=== PATIENT | female | born 1950 | race Caucasian/White ===

== ENCOUNTER 2017-12-12 07:27 | Day surgery (SDC) | payer MEDICARE, OTHER ==
[2017-12-12] MEDS ORDERED: LACTATED RINGERS 1,000 ML IV ONE ×2 (07:50→09:51)
[2017-12-12 07:57] LABS: BASOPHILS # (AUTO) 0.1 10^3/uL (0.0-0.1); BASOPHILS % (AUTO) 1.3 %; EOSINOPHILS # (AUTO) 0.3 10^3/uL (0.0-0.7); EOSINOPHILS % (AUTO) 6.4 %; LYMPHOCYTES # (AUTO) 1.4 10^3/uL (1.5-3.5); LYMPHOCYTES % (AUTO) 32.6 %; MEAN CORPUSCULAR HEMOGLOBIN 30.6 pg (27.0-31.0); MEAN CORPUSCULAR HGB CONC 32.9 g/dL (32.0-36.0); MEAN CORPUSCULAR VOLUME 92.9 fL (81.0-99.0); MEAN PLATELET VOLUME 9.8 fL (7.9-10.8); MONOCYTES # (AUTO) 0.5 10^3/uL (0.0-1.0); MONOCYTES % (AUTO) 11.1 %; NEUTROPHILS # (AUTO) 2.1 10^3/uL (1.5-6.6); NEUTROPHILS % (AUTO) 48.6 %; PLT - PLATELET COUNT 207 10^3/uL (130-450); RED BLOOD COUNT 4.92 10^6/uL (4.20-5.40); RED CELL DISTRIBUTION WIDTH 13.8 % (12.0-15.0); WHITE BLOOD COUNT 4.4 x10^3/uL (4.8-10.8)
[2017-12-12 08:23] LABS: ALBUMIN 3.8 g/dL (3.2-5.5); ALBUMIN/GLOBULIN RATIO 1.5 (1.0-2.2); BILIRUBIN,TOTAL 0.8 mg/dL (0.2-1.0); CALCIUM 8.9 mg/dL (8.5-10.3); CREATININE 0.9 mg/dL (0.4-1.0); TOTAL PROTEIN 6.4 g/dL (6.7-8.2)
[2017-12-12] MEDS ORDERED: fentaNYL 100 MCG/2 ML VIAL IVP ONE (09:10)
[2017-12-12] MEDS ORDERED: MIDAZOLAM 2 MG/2 ML VIAL IVP ONE (09:10)
[2017-12-12 10:54] VITALS: BP 98/64
== END 2017-12-12 07:28 | disposition home or self-care (01) ==
LOC: SDS 07:27
PROVIDERS: ATTEND Internal Medicine Gastroenterology
PROC: 0DBP8ZX Excision of Rectum, Via Natural or Artificial Opening Endoscopic, Diagnostic (ICD-10-PCS; principal; 2017-12-12 08:30)
DX: R10.32 Left lower quadrant pain (principal); R10.31 Right lower quadrant pain; K57.30 Diverticulosis of large intestine without perforation or abscess without bleeding; K62.1 Rectal polyp; I10 Essential (primary) hypertension
CPT/HCPCS: 45380; 80053; 83690; 85025; J7120; 88305

== ENCOUNTER 2018-06-19 08:22 | Outpatient (CLI) | payer MEDICARE, OTHER | END 2018-06-19 08:23 | disposition home or self-care (01) | LOC: DI 08:22 | PROVIDERS: ATTEND Physician Assistant Medical | DX: Z12.31 Encounter for screening mammogram for malignant neoplasm of breast (principal) | CPT/HCPCS: 77063; 77067 ==

== ENCOUNTER 2018-06-19 08:24 | Outpatient (CLI) | payer MEDICARE, OTHER ==
--- NOTE | 2018-06-20 08:42 | DEXA Report ---
Reason: POSTMENOPAUSAL STATUS Procedure Date: 06/19/2018 Accession Number: [id number] / [id number] Procedure: DEX - Dexa Spine and/or Hip CPT Code: FULL RESULT: EXAM: Dexa Spine and/or Hip DATE: 06/19/2018 9:24 AM CLINICAL HISTORY: POSTMENOPAUSAL STATUS TECHNIQUE: Dual energy x-ray absorptiometry (DXA) was performed on a [employer] System. Regions measured are the AP Spine, femoral neck, and if needed forearm. COMPARISON: None. In accordance with the International Society for Clinical Densitometry (ISCD) guidelines, data from previous exams may be reanalyzed using current recommendations and techniques. This is done to allow a more accurate basis for comparison with the current study. FINDINGS: The data for the lumbar spine is as follows: BMD (g/cm/cm) T-SCORE Z-SCORE REGION L1 0.994 -1.1 0.5 L2 1.019 -1.5 0.1 L3 1.284 0.7 2.3 L4 1.276 0.6 2.2 TOTAL 1.161 -0.2 1.4 NOTE: All evaluable vertebrae are used for classification The data for the hip is as follows: BMD (g/cm/cm) T-SCORE Z-SCORE REGION Neck 0.867 -1.2 0.3 TOTAL 0.834 -1.4 -0.1 NOTE: The femoral neck or total proximal femur, whichever is lowest, is used for classification. IMPRESSION: THE WHO CLASSIFICATION BASED ON THE INTERNATIONAL REFERENCE STANDARD IS OSTEOPENIA. THE FRACTURE RISK IS INCREASED. RECOMMENDATION: Patients with diagnosis of osteoporosis or osteopenia should have regular bone mineral density assessment. For those eligible for Medicare, routine testing is allowed once every 2 years. Testing frequency can be increased for patients who have rapidly progressing disease or for those who are receiving medical therapy to restore bone mass. COMMENT: World Health Organization (WHO) definitions for osteoporosis and osteopenia: NORMAL BMD: T-score at -1.0 or higher, fracture risk is low OSTEOPENIA BMD: T-score between -1.0 and -2.5, fracture risk is increased. OSTEOPOROSIS BMD: T-score at -2.5 or lower, fracture risk is high. National Osteoporosis Foundation recommends: 1. Obtain adequate dietary calcium (at least 1200 mg per day) and vitamin D (400-800 international units per day). 2. Participate, as appropriate, in regular weightbearing and muscle-strengthening exercise. 3. Avoid tobacco use and reduce alcohol and caffeine intake. 4. For more detailed information see the website at www.NOF.org.
== END 2018-06-19 08:25 | disposition home or self-care (01) ==
LOC: DI 08:24
PROVIDERS: ATTEND Physician Assistant Medical
DX: M85.89 Other specified disorders of bone density and structure, multiple sites (principal); Z78.0 Asymptomatic menopausal state
CPT/HCPCS: 77080

== ENCOUNTER 2018-12-23 09:16 | Outpatient (CLI) | payer MEDICARE, OTHER ==
[2018-12-23 18:09] LABS: BASOPHILS % (AUTO) 0.6 %; EOSINOPHILS # (AUTO) 0.3 10^3/uL (0.0-0.7); EOSINOPHILS % (AUTO) 5.3 %; HGB - HEMOGLOBIN 14.4 g/dL (12.0-16.0); LYMPHOCYTES # (AUTO) 1.6 10^3/uL (1.5-3.5); LYMPHOCYTES % (AUTO) 30.9 %; MEAN CORPUSCULAR HEMOGLOBIN 29.7 pg (27.0-31.0); MEAN CORPUSCULAR HGB CONC 31.4 g/dL (32.0-36.0); MEAN CORPUSCULAR VOLUME 94.6 fL (81.0-99.0); MEAN PLATELET VOLUME 11.5 fL (7.9-10.8); MONOCYTES # (AUTO) 0.5 10^3/uL (0.0-1.0); MONOCYTES % (AUTO) 9.5 %; NEUTROPHILS # (AUTO) 2.8 10^3/uL (1.5-6.6); NEUTROPHILS % (AUTO) 53.5 %; PLT - PLATELET COUNT 249 10^3/uL (130-450); RED BLOOD COUNT 4.85 10^6/uL (4.20-5.40); RED CELL DISTRIBUTION WIDTH 13.9 % (12.0-15.0); WHITE BLOOD COUNT 5.3 x10^3/uL (4.8-10.8)
[2018-12-23 18:17] LABS: ALBUMIN/GLOBULIN RATIO 1.6 (1.0-2.2); BILIRUBIN,TOTAL 0.6 mg/dL (0.2-1.0); CALCIUM 9.3 mg/dL (8.5-10.3); CREATININE 0.6 mg/dL (0.4-1.0); TOTAL PROTEIN 6.5 g/dL (6.7-8.2)
== END 2018-12-23 09:17 | disposition home or self-care (01) ==
LOC: LAB.F 09:16
PROVIDERS: ATTEND Physician Assistant Medical
DX: I10 Essential (primary) hypertension (principal); E03.9 Hypothyroidism, unspecified
CPT/HCPCS: 36415; 80053; 84443; 85025

== ENCOUNTER 2019-06-11 09:09 | Outpatient (CLI) | payer MEDICARE, OTHER ==
[2019-06-11 18:17] LABS: THYROID STIMULATING HORMONE 2.15 uIU/mL (0.34-5.60)
[2019-06-11 18:19] LABS: FREE T4 (FREE THYROXINE) 0.76 ng/dL (0.58-1.64)
[2019-06-11 18:47] LABS: HB2 TOTAL 15.2 g/dL; HEMOGLOBIN A1C 0.6 g/dL; HEMOGLOBIN A1C % 5.8 % (4.6-6.2)
[2019-06-12 05:46] LABS: ESTRADIOL 50 pg/mL
== END 2019-06-11 09:10 | disposition home or self-care (01) ==
LOC: LAB.S 09:09
PROVIDERS: ATTEND Physician Assistant Medical
DX: M85.80 Other specified disorders of bone density and structure, unspecified site (principal); Z79.890 Hormone replacement therapy; R73.01 Impaired fasting glucose; E03.9 Hypothyroidism, unspecified
CPT/HCPCS: 36415; 82306; 82670; 83036; 84439; 84443; 84481; 86376; 86800

== ENCOUNTER 2020-08-03 08:56 | Outpatient (CLI) | payer MEDICARE, OTHER ==
[2020-08-03 14:56] LABS: BASOPHILS % (AUTO) 0.6 %; EOSINOPHILS # (AUTO) 0.3 10^3/uL (0.0-0.7); EOSINOPHILS % (AUTO) 4.4 %; HGB - HEMOGLOBIN 14.9 g/dL (12.0-16.0); LYMPHOCYTES # (AUTO) 1.5 10^3/uL (1.5-3.5); LYMPHOCYTES % (AUTO) 23.3 %; MEAN CORPUSCULAR HEMOGLOBIN 30.1 pg (27.0-31.0); MEAN CORPUSCULAR HGB CONC 32.6 g/dL (32.0-36.0); MEAN CORPUSCULAR VOLUME 92.3 fL (81.0-99.0); MEAN PLATELET VOLUME 11.5 fL (7.9-10.8); MONOCYTES # (AUTO) 0.7 10^3/uL (0.0-1.0); MONOCYTES % (AUTO) 10.4 %; NEUTROPHILS # (AUTO) 3.9 10^3/uL (1.5-6.6); NEUTROPHILS % (AUTO) 61.1 %; PLT - PLATELET COUNT 252 10^3/uL (130-450); RED BLOOD COUNT 4.95 10^6/uL (4.20-5.40); RED CELL DISTRIBUTION WIDTH 14.1 % (12.0-15.0); WHITE BLOOD COUNT 6.3 x10^3/uL (4.8-10.8)
[2020-08-03 15:09] LABS: HEMOGLOBIN A1c% 5.7 % (4.27-6.07)
[2020-08-03 15:12] LABS: ALBUMIN 4.1 g/dL (3.2-5.5); ALBUMIN/GLOBULIN RATIO 1.6 (1.0-2.2); ALKALINE PHOSPHATASE 48 IU/L (42-121); ALT ALANINE AMINOTRANSFERASE 28 IU/L (10-60); AST ASPARTATE AMINOTRANSFERASE 24 IU/L (10-42); BILIRUBIN,TOTAL 0.7 mg/dL (0.2-1.0); BUN - BLOOD UREA NITROGEN 17 mg/dL (6-20); CALCIUM 9.3 mg/dL (8.5-10.3); CARBON DIOXIDE - CO2 27 mmol/L (21-32); CHLORIDE 101 mmol/L (101-111); CHOL/HDL RATIO 3.3 (<4.4); CHOLESTEROL 187 mg/dL; CREATININE 0.5 mg/dL (0.4-1.0); GLUCOSE 97 mg/dL (70-100); HDL CHOLESTEROL 57 mg/dL; LDL CHOLESTEROL,CALCULATED 116 mg/dL; TOTAL PROTEIN 6.7 g/dL (6.7-8.2); VLDL CHOLESTEROL 14 mg/dL
[2020-08-03 16:33] LABS: FREE T4 (FREE THYROXINE) 0.68 ng/dL (0.58-1.64)
[2020-08-04 06:02] LABS: PROGESTERONE 4.9 ng/mL
== END 2020-08-03 08:57 | disposition home or self-care (01) ==
LOC: LAB.S 08:56
PROVIDERS: ATTEND Registered Nurse
DX: I10 Essential (primary) hypertension (principal); E03.9 Hypothyroidism, unspecified; K58.9 Irritable bowel syndrome, unspecified; R73.01 Impaired fasting glucose; Z78.0 Asymptomatic menopausal state
CPT/HCPCS: 36415; 80053; 80061; 82607; 82627; 82670; 82672; 83036; 83721; 84144; 84403; 84439; 84443; 85025

== ENCOUNTER 2021-02-03 15:28 | Outpatient (CLI) | payer MEDICARE, OTHER ==
[2021-02-03 16:09] VITALS: BP 127/81
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
== END 2021-02-03 15:29 | disposition home or self-care (01) ==
LOC: SC 15:28
PROVIDERS: ATTEND Nurse Practitioner Family
DX: R41.89 Other symptoms and signs involving cognitive functions and awareness (principal); G47.8 Other sleep disorders; R51.9 Headache, unspecified; R06.83 Snoring
CPT/HCPCS: 99203; G0463; 99212

== ENCOUNTER 2021-03-03 19:40 | Outpatient (CLI) | payer MEDICARE, OTHER | END 2021-03-03 19:41 | disposition home or self-care (01) | LOC: SC 19:40 | PROVIDERS: ATTEND Nurse Practitioner Family | DX: G47.33 Obstructive sleep apnea (adult) (pediatric) (principal); G47.61 Periodic limb movement disorder | CPT/HCPCS: 95810 ==

== ENCOUNTER 2021-03-17 15:24 | Outpatient (CLI) | payer MEDICARE, OTHER ==
--- NOTE | 2021-03-17 15:57 | SLEEP CARE CONSULTATION ---
Information from patient questionnaire entered by Nikki Spangler. I have reviewed and concur with the information entered by Nikki Spangler. This document represents the service I personally performed and the decisions made by , Patty Hansen ARNP. History of Present Illness Service Date and Time: 03/17/2021 1524 Initial [place] Sleepiness Scale score: 6 (in 2020) Current [place] Sleepiness Scale score: 9 Additional HPI information: KAYLEIGH SCHAEFER returns for follow up and results of the recently performed polysomnography. I explained the pathophysiology behind obstructive sleep apnea. We then spent quite a bit of time discussing different treatment options. For mild obstructive sleep apnea, surgery and oral appliance are alternatives to nasal CPAP therapy but in moderate or severe cases, nasal CPAP is the most effective and reliable treatment. Because apnea is primarily in supine position, then positional management therapy could be effective. Methods discussed such as positioning with pillows, using a T-shirt with tennis balls in the back, and shown commercial products that have a pillow format on back to prevent supine sleep. I reviewed the impact of weight changes on sleep apnea. Patient was cautioned about risks of drowsy driving until sleepiness symptoms resolve. Sleep Study - Results Type of Sleep Study: Polysomnography Prior sleep studies: No Polysomnography/Home Sleep Study results: IMPRESSION: The quality of the study is good. The patient had slightly reduced sleep efficiency due to a prolonged awakening in the middle of the night. The sleep architecture was abnormal for sleep fragmentation. The sleep stage distribution was relatively normal. Respiratory monitoring showed mild obstructive sleep apneahypopnea (AHI = 5.6) associated with frequent arousals, oxyhemoglobin desaturation and mild hypoxia (mehrdad oxygen saturation of 82%). The respiratory events occurred almost exclusively during supine sleep (supine AHI = 6.8; non-supine = 0.85). Snore was light to moderate in intensity. There was severe periodic leg movement of sleep contributing to the sleep fragmentation.. Cardiac rhythm was normal sinus rhythm without significant arrhythmia. No abnormal behavior (parasomnia) observed during the night. Allergies and Home Medications Home medication list reviewed: Yes (no changes) Review of Systems Review of systems same as previous: Yes (no changes) Physical Exam Heart Rate: 68 O2 Saturation: 98 Height: 5 ft 4 in Weight: 145 lb Body Mass Index: 24.9 BMI Classification: Healthy weight Impression and Plan 1. Obstructive Sleep Apnea-Hypopnea Syndrome, mild, with lowest oxygen satur ation of 82%. Obviously this is the cause of the patients symptoms of unrefreshed sleep, and excessive daytime sleepiness. Positive pressure therapy could benefit hypertension and prediabetes. Patient would like to take some time and think about her options. She will call with her decision. Since patients apnea is primarily in supine position, patient advised to try positional therapy and agreed with plan. He is also advised to lose weight as this will reduce snoring and apnea. An oral appliance can also be used for snoring but often is not covered by insurance. Follow up is scheduled for one month to check effectiveness and if further evaluation indicated such a repeat study in supine position only to see if additional treatment indicated. 2. Periodic limb movement, severe, that did fragment patients sleep. Periodic limb movement of sleep (PLMS) is characterized by episodes of repetitive limb movements that occur during sleep and usually involve the lower limbs. The etiology is unknown but can be associated with restless leg syndrome (RLS), neuropathy, spinal cord diseases, kidney disease, rheumatological disorders, narcolepsy, obstructive sleep apnea, and REM sleep behavior disorder. Other factors that can increase PLMS and/or RLS are heredity and iron deficiency as reflected by a low serum ferritin level below 50 to 75mcg / L. Several medications can precipitate or aggravate PLMS such as selective serotonin re- uptake inhibitor antidepressants, tricyclic antidepressants, lithium, and dopamine receptor antagonists with the exception of bupropion. Caffeine can also aggravate PLMS and should be avoided. Sleep hygiene methods can also improve sleep as well as lifestyle changes such as regular exercise. Patient was advised that no treatment is needed at this time. If symptoms increase, then further evaluation is indicated. * Positional therapy. * Follow up with PCP for severe PLMs * Attempt to lose weight. * Avoid alcohol consumption near bedtime. * Avoid supine sleep until using CPAP. * The patient is again cautioned about driving until sleepiness completely resolves. * Return one month after CPAP obtained. I will assess response to therapy and compliance at that time. Counseling Topics: Weight control Visit Type: In Office Time Spent with Patient (minutes): 20 Provider Statement: I spent 100% of the Face to Face Visit with the patient with greater than 50% spent counseling the patient and coordination of care.
== END 2021-03-17 15:25 | disposition home or self-care (01) ==
LOC: SC 15:24
PROVIDERS: ATTEND Nurse Practitioner Family
DX: G47.33 Obstructive sleep apnea (adult) (pediatric) (principal); G47.61 Periodic limb movement disorder
CPT/HCPCS: 99212; G0463

== ENCOUNTER 2021-04-20 15:23 | Outpatient (CLI) | payer MEDICARE, OTHER ==
--- NOTE | 2021-04-20 15:58 | SLEEP CARE CONSULTATION ---
Information from patient questionnaire entered by Dwayne Reyes. I have reviewed and concur with the information entered by Dwayne Reyes. This document represents the service I personally performed and the decisions made by me, Patty Hansen ARNP. History of Present Illness Service Date and Time: 04/20/2021 1523 Previous diagnosis: Mild, Obstructive Sleep Apnea-Hypopnea Syndrome AHI: 5.6 Reason for follow up: one month (followup - positional therapy) Prior sleep studies: No Year and Where: 2020 [facility] additional information: KAYLEIGH SCHAEFER was diagnosed to have mild, AHI 5.6, obstructive sleep apnea- hypopnea syndrome and returned today for Positional therapy one month follow-up. CPAP Compliance Data Compliance data discussion: She found a positional device that is keeping her mostly on her sides. Her is not hearing her snore on her side. She is waking up feeling rested. Subjective On therapy, patient: reports: sleeping better, awakening more refreshed, being more awake and alert during the day, more rested overall. denies: drowsiness while driving Initial [place] Sleepiness Scale score: 6 (in 2020) Current [place] Sleepiness Scale score: 2 Allergies and Home Medications Home medication list reviewed: Yes (no changes) Review of Systems Review of systems same as previous: Yes (no changes) Physical Exam Heart Rate: 73 O2 Saturation: 98 Height: 5 ft 4 in Weight: 144 lb Body Mass Index: 24.7 BMI Classification: Healthy weight Impression and Plan 1. Obstructive Sleep Apnea-Hypopnea Syndrome, mild. Using positional therapy, the patient has better sleep quality and is more rested overall. Patient states she got is a little annoying but she thinks she is getting used to it. She is able to stay off of her back for the most part during the night. She does use it every night. Patient would like to continue with positional therapy for a good amount of time to see how it works. I will follow-up with her in about 6 months. Patient is at a healthy weight. Patient's apnea severity and rationale for treatment to reduce apnea, improve sleep quality and reduce cardiovascular and cerebrovascular events was reviewed. Continue positional therapy Attempt to lose weight Call this office if any problems Return for follow up in 6 months, or sooner if concerns arise Counseling Topics: Sleeping position, Weight control Visit Type: In Office Time Spent with Patient (minutes): 13 Provider Statement: I spent 100% of the Face to Face Visit with the patient with greater than 50% spent counseling the patient and coordination of care.
== END 2021-04-20 15:24 | disposition home or self-care (01) ==
LOC: SC 15:23
PROVIDERS: ATTEND Nurse Practitioner Family
DX: G47.33 Obstructive sleep apnea (adult) (pediatric) (principal)
CPT/HCPCS: 99212; G0463

== ENCOUNTER 2021-09-28 10:53 | Outpatient (CLI) | payer MEDICARE ==
--- NOTE | 2021-09-28 13:20 | DEXA Report ---
PROCEDURE: Dexa Spine and/or Hip INDICATIONS: OSTEOPENIA TECHNIQUE: Dual energy x-ray absorptiometry (DXA) was performed on a [employer] System. Regions measur ed are the AP Spine, femoral neck, and if needed forearm. COMPARISON: None. FINDINGS: Lumbar Spine: Bone Mineral Density 1.195 g/cm/cm,T score 0.1 Left Hip: Bone Mineral Density 0.828 g/cm/cm,T score -1.4 Left Femoral Neck: Bone Mineral Density 0.844 g/cm/cm, T score -1.4 (T score greater or equal to -1.0: NORMAL) (T score from -1.1 to -2.4: OSTEOPENIA) (T score less than or equal to -2.5 to: OSTEOPOROSIS) Impression: Stomach WHO criteria, the patient is osteopenic. Compared to the last exam, the patient's bone minera l density in lumbar spine has increased by 2.9% there is, which is statistically significant. The pat ient's bone mineral density in left hip is unchanged. Patients with diagnosis of osteoporosis or osteopenia should have regular bone mineral density assess ment. For those eligible for Medicare, routine testing is allowed once every 2 years. Testing frequ ency can be increased for patients who have rapidly progressing disease or for those who are receivin g medical therapy to restore bone mass. Reviewed by: Aurora Gomes MD on 09/28/2021 1:19 PM PDT Approved by: Aurora Gomes MD on 09/28/2021 1:19 PM PDT Station ID: [id number]
== END 2021-09-28 10:54 | disposition home or self-care (01) ==
LOC: DI 10:53
PROVIDERS: ATTEND Nurse Practitioner Family
DX: M85.89 Other specified disorders of bone density and structure, multiple sites (principal)

== ENCOUNTER 2022-01-23 13:48 | Outpatient (CLI) | payer MEDICARE ==
[2022-01-23 14:33] VITALS: BP 116/75
--- NOTE | 2022-01-23 14:33 | SLEEP CARE CONSULTATION ---
Information from patient questionnaire entered by Markus Dey MA. I have reviewed and concur with the information entered by Markus Dey MA. This document represents the service I personally performed and the decisions made by , Patty Hansen ARNP. History of Present Illness Service Date and Time: 01/23/2022 1348 Previous diagnosis: Mild, Obstructive Sleep Apnea-Hypopnea Syndrome AHI: 5.6 Reason for follow up: other (10 MONTH F/U, LAST SEEN 04/27, POS SS 2020 [facility], NO PRIOR DEVICE REPORT, ) Prior sleep studies: No Year and Where: 2020 [facility] poly Type of Sleep Study: Polysomnography HPI additional information: TOSIN SCHAEFER was diagnosed to have mild, AHI 5.6, obstructive sleep apnea- hypopnea syndrome and returned today for Positional therapy 10 month follow-up. Sleep Study - Results Type of Sleep Study: Polysomnography Prior sleep studies: No Year and Where: 2020 [facility] poly CPAP Compliance Data Compliance data discussion: She has been consistent with using her positional therapy most of the time. There has been times when she stopped using her positional belt after losing weight. But, when she gained the weight back, she resumed using the positional belt after only about a month or so without it. However, she finds that she would like to sleep more on her back and comes in with questions about an oral appliance. Subjective Observed to snore while using device: No On therapy, patient: reports: sleeping better, awakening more refreshed, being m ore awake and alert during the day, more rested overall. denies: drowsiness while driving Initial [place] Sleepiness Scale score: 6 (in 2020) Current [place] Sleepiness Scale score: 5 (01/23/2022 POSITIONAL THERAPY) Allergies and Home Medications Home medication list reviewed: Yes (no changes) Allergy and home medication list: Allergies No Known Drug Allergies Allergy (Verified 12/11/17 13:44) Review of Systems Review of systems same as previous: Yes (no changes) Physical Exam Vital signs obtained and entered by: Jamar DEY CMA AAArlethW Blood Pressure: 116/75 (RESP 16, PULSE 72, LEFT) Cuff size: wrist Heart Rate: 74 O2 Saturation: 98 (PAPER MASK) Height: 5 ft 4 in Weight: 150 lb (CLOTHES) Weight change since last visit: LOSE - LOST 20 LBS Body Mass Index: 25.7 BMI Classification: Overweight Impression and Plan 1. Obstructive Sleep Apnea-Hypopnea Syndrome, mild. Using positional therapy, the patient has better sleep quality and is more rested overall. Tosin would like to explore using an oral appliance because she would like to be able to sleep on her back again. She would like to take some time to make sure her insurance will cover the cost of this. I will write a prescription for the oral appliance and she will call us for follow up if she gets one made. She would need to follow up a month after obtaining the oral appliance and have a follow up sleep study to check effectiveness. She voiced understanding and will let us know. Patient's apnea severity and rationale for treatment to reduce apnea, improve sleep quality and reduce cardiovascular and cerebrovascular events was reviewed. She did lose weight but has gained some back. -Continue positional therapy -Patient to look into oral appliance; prescription written -Continue to try to lose weight -Call this office if any problems -Return for follow up in 1 year, or sooner if concerns arise Counseling Topics: Sleeping position, Weight loss health impact Visit Type: In Office Time Spent with Patient (minutes): 20 Provider Statement: I spent 100% of the Face to Face Visit with the patient with greater than 50% spent counseling the patient and coordination of care.
== END 2022-01-23 13:49 | disposition home or self-care (01) ==
LOC: SC 13:48
PROVIDERS: ATTEND Nurse Practitioner Family
DX: G47.33 Obstructive sleep apnea (adult) (pediatric) (principal)
CPT/HCPCS: 99213; G0463; 99212

== ENCOUNTER 2022-04-09 12:32 | Outpatient (CLI) | payer MEDICARE ==
--- NOTE | 2022-04-10 11:51 | Mammography Report ---
UNILATERAL LEFT DIGITAL DIAGNOSTIC MAMMOGRAM 3D/2D: 04/09/2022 CLINICAL: Patient returns today to evaluate a focal asymmetry in the left breast. Comparison is made to exams dated: 03/22/2022 mammogram, 06/19/2018 mammogram, and 07/24/2016 mammogra m - [facility]. The left breast is heterogeneously dense, which may obscure small masses (category c / 51-75% glandul ar tissue). There is a 1.5 cm focal asymmetry with a circumscribed margin in the left breast at 6 o'clock middle depth. No other significant masses or calcifications are seen in the breast. IMPRESSION: INCOMPLETE: NEEDS ADDITIONAL IMAGING EVALUATION The 1.5 cm focal asymmetry in the left breast resembles a cyst and is indeterminate. A targeted ultrasound is recommended and will immediately follow. Based on the Tyrer Cuzick model (a risk assessment model) the patients lifetime risk is 5.7% and her 10 year risk is 3.7%. According to the ACR, ACS, and NCCN guidelines, an annual breast MRI exam ani g with mammogram is recommended if the patients lifetime risk is 20% or greater. This exam was interpreted at Station ID: [id number]. NOTE: For mammograms, a report in lay terms will be sent to the patient. Approximately 15% of breast malignancies will not be visualized mammographically. In the management of a palpable breast mass, a negative mammogram must not discourage biopsy of a clinically suspicious lesion. Electronically Signed By: Dario Rubio M.D. slc/:04/09/2022 12:59:43 ACR BI-RADS Category 0: Incomplete 3340F PARENCHYMAL PATTERN: (D) - The breast(s) demonstrate(s) heterogeneously dense fibroglandular florecita quiñones. BI-RADS CATEGORY: (0) - 0 Ultrasound [id number] Immediate follow-up LATERALITY: (B)
--- NOTE | 2022-04-10 11:51 | Ultrasound Report ---
LIMITED ULTRASOUND OF LEFT BREAST: 04/09/2022 CLINICAL: Palpable left breast lump. Comparison is made to exams dated: 04/09/2022 mammogram, 03/22/2022 mammogram, and 06/19/2018 mammogra m - [facility]. Color flow and real-time ultrasound of the left breast 6 o'clock region were performed. Fang scale i mages of the real-time examination were reviewed. There is a benign 1.4 cm x 1 cm x 0.8 cm oval simple cyst in the left breast at 6 o'clock middle dept h 2 cm from the nipple. This oval simple cyst is anechoic. IMPRESSION: BENIGN There is no sonographic evidence of malignancy. The 1.4 cm simple cyst in the left breast is benign. A 1 year screening mammogram is recommended. Exam findings were conveyed to the patient. This exam was interpreted at Station ID: [id number]. Electronically Signed By: Dario Rubio M.D. slc/:04/09/2022 13:17:52 Ultrasound BI-RADS: 2 Benign BI-RADS CATEGORY: (2) - 2 RECOMMENDATION: (ANNUAL) - Recommend routine annual screening mammography. [id number] 1 year screening LATERALITY: (B)
== END 2022-04-09 12:33 | disposition home or self-care (01) ==
LOC: DI 12:32
PROVIDERS: ATTEND Nurse Practitioner Family
DX: R92.8 Other abnormal and inconclusive findings on diagnostic imaging of breast (principal); N60.02 Solitary cyst of left breast

== ENCOUNTER 2024-01-03 12:51 | Outpatient (CLI) | payer MEDICARE, OTHER ==
--- NOTE | 2024-01-03 13:29 | Sleep Patient Instructions ---
Sleep Center Visit Summary - Patient Visit Information Reason for Visit: Annual follow-up - Patient Instructions Additional Instructions: You will be completing a sleep study in the in-lab polysomnography (PSG). You will follow-up in the sleep care office after the sleep study is completed to hear the results and talk about therapy, if needed. You will be called by our office staff to schedule this appointment, but you may contact us with any questions. - Clinic Information Contact: [facility] [address] [place] [address] [email or web address] T: [phone]
--- NOTE | 2024-01-03 13:33 | SLEEP CARE CONSULTATION ---
Information from patient questionnaire entered by Belle Encarnacion. I have reviewed and concur with the information entered by Belle Encarnacion. This document represents the service I personally performed and the decisions made by me, Patty Hansen ARNP. History of Present Illness Service Date and Time: 01/03/2024 1251 Previous diagnosis: Mild, Obstructive Sleep Apnea-Hypopnea Syndrome AHI: 5.6 Reason for follow up: annual (LAST SEEN 01/2022 NO CPAP) Prior sleep studies: No Year and Where: 2020 [facility] poly Type of Sleep Study: Polysomnography HPI additional information: KAYLEIGH SCHAEFER was diagnosed to have mild, AHI 5.6, obstructive sleep apnea- hypopnea syndrome and returned today for positional therapy annual follow-up. She has been having difficulty maintaining being on her side and is not waking up refreshed. She has gained some weight. She does not takes naps but is tired and has "low motivation". Sleep Study - Results Type of Sleep Study: Polysomnography Prior sleep studies: No Year and Where: 2020 [facility] poly CPAP Compliance Data Compliance data discussion: She is finding the positional therapy is frustrating. She has been using a positional vest but finds it annoying and will take it off. Subjective Initial [place] Sleepiness Scale score: 6 (in 2020) Current Ferdinand Sleepiness Scale score: 8 Allergies and Home Medications Known drug allergies: No Drug allergies reviewed: Yes Home medication list reviewed: Yes (no changes) Allergy and home medication list: Allergies No Known Drug Allergies Allergy (Verified 01/01/24 10:00) Review of Systems Review of systems same as previous: Yes (no changes) Physical Exam Vital signs obtained and entered by: Patty Guillen NP Blood Pressure: 140/83 Cuff size: regular (left arm) Heart Rate: 61 O2 Saturation: 98 Height: 5 ft 4 in Weight: 160 lb 6.4 oz Weight change since last visit: 10 lb gain Body Mass Index: 27.5 BMI Classification: Overweight Impression and Plan 1. Obstructive Sleep Apnea-Hypopnea Syndrome, mild. She has been using po sitional therapy to control sleep apnea. She says she has not been able to do it consistently and does not feel it has been very effective. She would like to look into trying the CPAP so that she can sleep on her back. I explained that we will need to proceed to polysomnography to confirm the diagnosis and to assess severity. I obtained agreement to proceed. The pathophysiology of obstructive sleep apnea-hypopnea syndrome was discussed with the patient and health risks of cardiovascular and cerebrovascular disease if not treated. Risks of drowsy driving discussed in detail and patient advised to avoid long distance driving and to side puller at the first sign of drowsiness. Patient agreed to plan. Patient's apnea severity and rationale for treatment to reduce apnea, improve sleep quality and reduce cardiovascular and cerebrovascular events was reviewed. I also reviewed the benefit of consistent therapy for hypertension. 2. Overweight, unspecified. Currently patients BMI is 27.5. Obesity increases the risk of apnea and overall health risks especially cardiovascular and diabetes. Thus patient is advised to lose weight. * Continue Positional therapy * PSG to verify diagnosis and severity, qualify for CPAP * Maintain a healthy weight * Call this office if any problems * Return for follow up after sleep study to review results, or sooner if concerns arise Counseling Topics: Sleeping position, Weight control Plan: PSG to verify diagnosis and severity Visit Type: In Office Time Spent with Patient (minutes): 21 Provider Statement: I spent 100% of the Face to Face Visit with the patient with greater than 50% spent counseling the patient and coordination of care.
[2024-01-03 13:42] VITALS: BP 140/83; O2SAT 98
== END 2024-01-03 12:52 | disposition home or self-care (01) ==
LOC: SC 12:51
PROVIDERS: ATTEND Nurse Practitioner Family
DX: G47.33 Obstructive sleep apnea (adult) (pediatric) (principal); I10 Essential (primary) hypertension; E66.3 Overweight; Z68.27 Body mass index [BMI] 27.0-27.9, adult
CPT/HCPCS: 99213; G0463; 99212

== ENCOUNTER 2024-01-22 19:41 | Outpatient (CLI) | payer MEDICARE, OTHER | END 2024-01-22 19:42 | disposition home or self-care (01) | LOC: SC 19:41 | PROVIDERS: ATTEND Nurse Practitioner Family | DX: G47.61 Periodic limb movement disorder (principal) | CPT/HCPCS: 95810 ==

== ENCOUNTER 2024-02-20 14:41 | Outpatient (CLI) | payer MEDICARE, OTHER ==
--- NOTE | 2024-02-20 13:56 | Sleep Patient Instructions ---
Sleep Center Visit Summary - Patient Visit Information Reason for Visit: Sleep study follow-up - Patient Instructions Additional Instructions: Your sleep study today was negative for significant sleep disordered breathing. You were found to have severe periodic leg movements of sleep that contributed to your sleep fragmentation. You should follow-up with primary care for further evaluation and treatment as needed of this finding. However, you did have elevated respiratory episodes when sleeping on your back. You should avoid sleeping on your back to control these respiratory episodes. You were found to have episodes of snoring. There are different ways to control snoring including weight loss, oral devices made by a dentist or surgical options through ENT specialist. You should not use oral devices that do not fit properly because they can affect your bite. You should also check insurance coverage of oral devices for snoring because they may not be cover well. You may obtain a referral to an ENT specialist through your primary provider. Follow-up as needed. - Clinic Information Contact: [facility] [address] [place] [address] [email or web address] T: [phone]
--- NOTE | 2024-02-20 13:58 | SLEEP CARE CONSULTATION ---
Information from patient questionnaire entered by Belle Encarnacion. I have reviewed and concur with the information entered by Belle Encarnacion. This document represents the service I personally performed and the decisions made by , Patty Hansen ARNP. History of Present Illness Service Date and Time: 02/20/2024 1340 Initial [place] Sleepiness Scale score: 6 (in 2020) Current [place] Sleepiness Scale score: 6 (02/20/24) Additional HPI information: KAYLEIGH SCHAEFER returns for follow up and results of the recently performed polysomnography done on 01/22/2024. The patient was informed of the following findings: No significant sleep disordered breathing with an average AHI of 1.5 and mehrdad oxygen saturation of 86%. She had severe PLMs contributing to sleep fragmentation. I explained the pathophysiology behind obstructive sleep apnea. Patient does not have sleep apnea and was advised how weight gain could increase the risk of developing sleep apnea in the future. I strongly encouraged the patient to maintain a healthy weight. Patient has light to moderate snoring. Snoring can be reduced by weight loss. Snoring can also be treated with an oral appliance from a dentist. Advised to check insurance coverage. In addition, an ENT evaluation can be do to see if other treatment is indicated. Patient counseled not drink alcohol less than 4 hours before bedtime as it can increase snoring and apnea. Patient was cautioned about risks of drowsy driving until sleepiness symptoms resolve. Patient denies drowsy driving. Sleep Study - Results Type of Sleep Study: Polysomnography (COMPLETED 01/22/24) Prior sleep studies: No Year and Where: 2020 [facility] Polysomnography/Home Sleep Study results: IMPRESSION: The quality of the study is good. The patient had minimally reduced sleep efficiency. The sleep architecture was abnormal for sleep fragmentation and reduced amount of time spent in REM sleep. Respiratory monitoring showed no significant sleep disordered breathing (AHI = 1.5) or hypoxia (mehrdad oxygen saturation of 86% and only 0.25% to the total sleep time was spent with oxygen saturation below 90%). The patient slept mostly supine (supine AHI = 2.4; non-supine = 0.00). Snore was light to moderate in intensity. There was severe periodic leg movement of sleep contributing to the sleep fragmentation. Cardiac rhythm was normal sinus rhythm without significant arrhythmia. No abnormal behavior (parasomnia) observed during the night. Allergies and Home Medications Known drug allergies: No Drug allergies reviewed: Yes Home medication list reviewed: Yes (no changes) Allergy and home medication list: Allergies No Known Drug Allergies Allergy (Verified 02/20/24 13:31) Review of Systems Review of systems same as previous: Yes (NO CHANGE) Physical Exam Vital signs obtained and entered by: BELLE Graff MA Blood Pressure: 140/90 (LEFT ARM) Cuff size: regular Heart Rate: 75 O2 Saturation: 96 Height: 5 ft 4 in Weight: 160 lb 6.4 oz Body Mass Index: 27.5 BMI Classification: Overweight Impression and Plan 1. Snoring but no significant sleep disordered breathing. Patient advised that often weight loss will reduce snoring as well as apnea risk. An oral appliance can also be used for snoring. This would require a dental consultation. Patient cautioned not to use other online appliances as can cause bite issues. Patient is advised to check if insurance will cover. An ENT consult can also be helpful to determine if any other treatment is an option. 2. Periodic limb movement, severe, that did not fragment patients sleep. Periodic limb movement of sleep (PLMS) is characterized by episodes of repetitive limb movements that occur during sleep and usually involve the lower limbs. The etiology is unknown. Patient was advised that no treatment is needed at this time. If symptoms increase, then further evaluation is indicated. 3. Overweight, unspecified. Currently patients BMI is 27.5. Obesity increases the risk of apnea, CPAP pressure requirements and overall health risks especially cardiovascular and diabetes. Thus patient is advised to lose weight. * Follow up with PCP for severe PLMs * Continue to try to lose weight * Avoid alcohol consumption near bedtime * The patient is cautioned about driving until sleepiness is completely resolved. * Return as needed for follow up. Counseling Topics: Weight loss health impact Follow up with Sleep Care in: as needed Follow up with: PCP Follow up recommended for: PLMS Visit Type: In Office Time Spent with Patient (minutes): 12 Provider Statement: I spent 100% of the Face to Face Visit with the patient with greater than 50% spent counseling the patient and coordination of care.
[2024-02-20 14:07] VITALS: BP 140/90; O2SAT 96
== END 2024-02-20 14:42 | disposition home or self-care (01) ==
LOC: SC 14:41
PROVIDERS: ATTEND Nurse Practitioner Family
DX: R06.83 Snoring (principal); G47.61 Periodic limb movement disorder; E66.3 Overweight; Z68.27 Body mass index [BMI] 27.0-27.9, adult
CPT/HCPCS: 99212; G0463